=== PATIENT | male | born 1975 | race Caucasian/White ===

== ENCOUNTER 2023-02-19 11:25 | Outpatient (OUT) | payer BC, SELFPAY ==
[2023-02-19 11:45] LABS: Basophils Percent Auto 0.8 % (0.2-2.0); Eosinophils Absolute Auto 0.1 10^3/uL (0.0-0.7); Hematocrit 40.7 % (42.0-54.0); Hemoglobin 13.5 g/dL (14.0-18.0); Immature Granulocytes Abs Auto 0.01 10^3/uL (0.00-0.03); Immature Granulocytes Pct Auto 0.2 % (0.0-0.5); Lymphocytes Absolute Auto 1.5 10^3/uL (1.2-3.8); Lymphocytes Percent Auto 29.9 % (20.5-60.0); Mean Corpuscular HGB Conc 33.2 g/dL (29.9-35.2); Mean Corpuscular Hemoglobin 28.1 pg (25.9-34.0); Mean Corpuscular Volume 84.8 fL (80.0-94.0); Mean Platelet Volume 9.7 fL (9.5-13.5); Monocytes Absolute Auto 0.4 10^3/uL (0.3-0.8); Monocytes Percent Auto 7.1 % (1.7-12.0); Neutrophils Absolute Auto 3.1 10^3/uL (1.4-6.5); Platelet Count 249 10^3/uL (150-450); Red Cell Distribution Width 12.7 % (11.0-15.0); White Blood Count 5.1 10^3/uL (4.0-11.0)
[2023-02-19 13:36] LABS: Estimated Average Glucose 114 mg/dL; Glycohemoglobin A1C 5.6 % (4.5-6.2)
[2023-02-19 14:03] LABS: Prostate Specific Antigen Scrn 1.07 ng/mL (<=4.00)
[2023-02-19 14:12] LABS: Alanine Aminotransferase 41 U/L (16-63); Albumin Globulin Ratio 1.1; Albumin Level 3.8 g/dL (3.4-5.0); Alkaline Phosphatase 77 U/L (46-116); Anion Gap 10.5; Aspartate Amino Transferase 22 U/L (15-37); BUN Creatinine Ratio 11.8; Bilirubin Total 0.5 mg/dL (0.2-1.0); Calcium 8.8 mg/dL (8.5-10.1); Carbon Dioxide 27.4 mmol/L (21.0-32.0); Chloride 108 mmol/L (98-107); Chol HDL Ratio 3.9; Cholesterol 177 mg/dL (<=200); Estimated GFR (African America >60 (>=60); Estimated GFR (Non-African Ame >60 (>=60); Free T3 3.11 pg/mL (2.18-3.98); Globulin 3.5 g/dL; Glucose 85 mg/dL (74-106); HDL Cholesterol 45 mg/dL (40-60); Potassium 3.9 mmol/L (3.5-5.1); Sodium 142 mmol/L (136-145); Thyroid Stimulating Hormone 1.497 uIU/mL (0.358-3.740); Total Protein 7.3 g/dL (6.4-8.2); Triglycerides 65 mg/dL (<=150)
[2023-02-20 10:09] LABS: Insulin 5.2 uIU/mL (2.6-24.9)
== END 2023-02-19 11:26 | disposition home or self-care (01) ==
PROVIDERS: PCP Family Medicine; Visit Provider Nurse Practitioner Family
DX: Z00.00 Encounter for general adult medical examination without abnormal findings (principal); Z12.5 Encounter for screening for malignant neoplasm of prostate
CPT/HCPCS: 36415; 80053; 80061; 83036; 83525; 84436; 84443; 84481; 85025; G0103

== ENCOUNTER 2025-01-28 10:38 | Outpatient (OUT) | payer BC, SELFPAY ==
--- OUTSIDE RECORDS SUMMARY | 2025-01-28 05:45 | XMS_ITS ---
Author Organization [facility] in [place] Address [address] [place] [address] Care Team Providers Care Liner Worker Name Role Phone Nj Benton Primary Care Provider Allergies No Known Allergies REASON FOR VISIT Presents to office alone for yearly wellness Social History Tobacco Use: Social History Observation Description Date Details (start date - stop date) Never Smoker NA - NA Tobacco Use/Smoking Question Answer Notes Patient is a nonsmoker AUDIT-C (Standard) Question Answer Notes Did you have a drink containing alcohol in the p ast year? No Points 0 Interpretation Negative Problems Problem Type SNOMED Code ICD Code Onset Dates Problem Status W/U Status Risk Notes Problem Well adult (832311341) Well adult (Z00.00) Active confirmed Vital Signs Weight 202.6 lbs 01/28/2025 Height 69.5 in 01/28/2025 Blood pressure systolic 136 mm Hg 01/29/20 25 Blood pressure diastolic 80 mm Hg 025 BMI 29.49 kg/m2 01/28/2025 Encounters Encounter Location Date Provider Diagnosis [facility] [address] [place] [address] 01/28/2025 Nj Benton Well adult Z00.00 an d Nevus D22.9 Assessments Encounter Date Diagnosis (ICD Code) Assessment Notes Treatment Notes Treatment Clinical Notes Section Notes 01/28/2025 Well adult (ICD-10 - Z00.00) scaling in 2 spots - sending to derm 01/28/2025 Nevus (ICD-10 - D22.9) Plan Of Treatment Treatment Notes Assessment Notes Well adult scaling in 2 spots - sending to derm Pending Test Test Name Order Date HEMOGLOBIN A1C (GLYCO) 01/28/2025 LIPID PANEL (CHOL/TRIG/HDL/LDL) 01/29/20 25 STOOL OCCULT BLOOD 01/28/2025 PSA, SCREENING 01/28/2025 CMP (COMP MET GAXIOLA) w/eGFR CKD-EPI 2024 CBC WITH DIFF 01/28/2025 Progress Notes * Ricardo RAZO RDOB:[birth year] (49 yo M)Acc No.[id number]:01/28/2025 UNLOCKED PROGRESS NOTE Progress Note Patient: Ricardo OCONNOR Provider: Aneesh Benton ([facility])MD :1975 A ge:49 Y S ex:Male Date:01/28/2025 Address:[address] [place], [place] [id number] Check In:09:38 AM ESTCheck O ut:10:36 AM EST Subjective: * Chief Complaints: * 1 . Presents to office alone for yearly wellness. * HPI: D epression Screening: PHQ-2 (2015 Edition) L ittle interest or pleasure in doing things??Not at all F eeling down, depressed, or hopeless? N ot at all T otal Score 0 * ROS: E ENT: hearing changes d enies. v isual changes d enies.?non-healing mouth sores d enies. s wollen glands or neck lumps d enies. h oarseness d enies. s ore throat d enies. d ifficulty swallowing d enies. n ose bleeds d enies. n hi congestion d enies. e ar ache d enies. e ar discharge?denies. r inging in ears d enies. l ight sensitivity d enies. e ye pain d enies. b lurring d enies. e ye irritation d enies. d ouble vision d enies.?vision loss d enies. G eneral/Constitutional: Sweats: D enies. F atigue d enies. S leep problems d enies. A norexia d enies. M alaise d enies. W eight loss d enies.?Fatigue or Weakness d enies. F ever or Chills d enies. C ardiovascular: Shortness of Breath w/lying flat d enies. L ightheadedness/dizziness d enies. C hest tightness/ heavy pressure d enies. S welling of legs, ankles, or feet d enies. W aking up with shortness of breath d enies. C hest pain denies. P alpitations d enies. W eight gain d enies. R espiratory: Chronic or frequent cough d enies. C oughing up blood?denies. D ifficulty breathing d enies. P roductive cough d enies. S noring?denies. S hortness of breath that awakens from sleep (PND) d enies. C hest pain d enies. S putum production d enies. W heezing d enies. M usculoskeletal: Joint pain d enies. J oint Fluid d enies. B ack pain d enies. K nee pain d enies. N edison pain d enies. J oint Stiffness d enies. M uscle cramps d enies. W eakness of muscles d enies. A rthritis d enies. M uscle aches d enies. P ain in shoulder(s) d enies. S wollen joints d enies. * Medical History: O nyla weight, Low back derangement syndrome. * Surgical History: R od in Femur and then removed . * Family History: F ather: , alcoholism. M other: alive, Breast Cancer. B rother(s): alive. S on(s): alive. D aughter(s): alive. 2 sister(s) - healthy. 2 son(s) , 1 daughter(s) - healthy. . * Social History: T obacco Use: T obacco Use/Smoking P atient is a n onsmoker D rug/Alcohol: A KIMMIE-C (Standard) D id you have a drink containing alcohol in the past year? N o P oints 0 I nterpretation N egative * Medications: D iscontinued Baclofen 20 MG Tablet 1 tablet Administer without regards to meals as needed Orally Twice a day , Discontinued Oxaprozin 600 MG Tablet as directed Orally , Discontinued Triamcinolone Acetonide 0.1 % Ointment 1 application Externally Twice a day , Medication List reviewed and reconciled with the patient * Allergies: N .K.D.A. Objective: * Vitals: W t:202.6lbs, Ht: 69.5 in, BP:136/80mm Hg, BMI:29.49Index, Ht-cm: 176.53 cm, Wt- k.9 kg. * Examination: P hysical Exam: GENERAL: w ell developed, well nourished, in no acute distress. HEAD: n ormocephalic/atraumatic. EYES: p upils equal, round and reactive to light, conjunctivae and sclerae normal. EARS: n o deformity or lesion of external ear, canals and TM appear normal bilaterally, TM's intact, not inflamed with normal light reflex, hearing grossly normal to conversational speech. NOSE: n o deformity, discharge, inflammation, or lesions.? MOUTH: m ucous membranes moist, normal oropharynx and posterior pharynx without lesions or exudates, tongue normal, dentition normal. NECK: n edison supple, no masses or palpable cervical nodes, trachea midline, thyroid without nodules, masses, tenderness, or enlargement. CHEST: n o chest wall deformity, no chest wall tenderness.? LUNGS: n ormal respiratory effort and clear to auscultation, no wheezes, rales, or rhonchi, good air exchange. CARDIO: r egular rate and rhythm, normal S1 and S2, nor murmur, rub, or gallop. PULSES: n ormal capillary refill. ABDOMEN: s oft, non-distended, non-tender, no masses. MUSCULOSKELETAL: n o deformity or scoliosis noted, normal range of motion, joints normal, no erythema, edema, effusion, or ecchymosis. EXTREMITY: n o clubbing, cyanosis, edema, or deformity with normal ROM in both upper and lower bilateral extremities. NEUROLOGIC: g rossly normal. SKIN: n o rashes, ulcerations, or suspicious lesions. LYMPH NODES: n o cervical adenopathy, nodes normal. MENTAL STATUS: a lert and oriented x3, normal mood and affect. Assessment: * Assessment: 1. W ell adult - Z00.00 (Primary) 2 . N evus - D22.9 Plan: * Treatment: * Preventive Medicine: Screenings/Counseling: B MO ACTION PLAN Above Normal BMI Follow-up D ietary management education, guidance, and counseling See treatment section of progress note for complete details of management plan. * * Electronic signature of Nj Benton MD, [id number] on 01/28/2025 at 10:42 AM EDT Sign off status: Pending Visit Status: C HK (Check Out) * Provider: Aneesh Benton ([facility])MD Date: 0 01/28/2025 Generated for Printi ng/Faxing/eTransmitting on: 0 01/28/2025 10:42 AM EDT History and Physical Notes * HPI (History of Present Illness) Category Sub-Category Detail Notes Category Not es Depression Screening PHQ-2 (2015 Edition) Little interest or pleasure in doing things?: Not at all Feeling down, depressed, or hopeless?: N ot at all Total Score: 0 Examination Category Sub-Category Detail Notes Category Not es Physical Exam GENERAL: well developed, well nourished, in no acute distress HEAD: normocephalic/atraum atic EYES: pupils equal, round and reactive to light, conjunctivae and sclerae normal EARS: no deformity or lesi on of external ear, canals and TM appear normal bilaterally, TM's intact, not inflamed with normal light reflex, hearing grossly normal to conversational speech NOSE: no deformity, discha rge, inflammation, or lesions MOUTH: mucous membranes [address], normal oropharynx and posterior pharynx without lesions or exudates, tongue normal, dentition normal NECK: neck supple, no mass es or palpable cervical nodes, trachea midline, thyroid without nodules, masses, tenderness, or enlargement CHEST: no chest wall deform ity, no chest wall tenderness LUNGS: normal respiratory e ffort and clear to auscultation, no wheezes, rales, or rhonchi, good air exchange CARDIO: regular rate and rhy thm, normal S1 and S2, nor murmur, rub, or gallop PULSES: normal capillary ref ill ABDOMEN: soft, non-distended, non-tender, no masses RECTAL: MUSCULOSKELETAL: no deformity or scol iosis noted, normal range of motion, joints normal, no erythema, edema, effusion, or ecchymosis EXTREMITY: no clubbing, cyanosi s, edema, or deformity with normal ROM in both upper and lower bilateral extremities NEUROLOGIC: grossly normal SKIN: no rashes, ulceratio ns, or suspicious lesions LYMPH NODES: no cervical adenopat hy, nodes normal MENTAL STATUS: alert and oriented x 3, normal mood and affect
--- OUTSIDE RECORDS SUMMARY | 2025-01-28 06:27 | XMS_ITS ---
Author Organization [facility] in [place] Address [address] [place] [address] Care Team Providers Care School Boat Driver Name Role Phone Chetan Nj Primary Care Provider [phone] Reason For Referral Diagnosis 1 Nevus (D22.9) Referral Organization [facility] Referring Provider First Name Nj Referring Provider Last Name Chetan Referring Provider [facility] karina Referred Provider Sumanth Arevalo Referred Provider Specialty Dermatology Referral Priority Routine REASON FOR VISIT derm Encounters Encounter Location Date Provider Diagnosis [facility] [address] [place] [address] 01/28/2025 Nj Benton Nevus D22.9 Assessments Encounter Date Diagnosis (ICD Code) Assessment Notes Treatment Notes Treatment Clinical Notes Section Notes 01/28/2025 Nevus (ICD-10 - D22.9) Plan Of Treatment Referrals Referral Date Details 01/28/2025 01/28/2025, Sumanth mejia Progress Notes * Ricardo RAZO RDOB:[birth year] (49 yo M)Acc No.[id number]:01/28/2025 Patient: Misha Ricardo GABRIEL :1975 A ge:49 Y S ex:Male Address:[address] [place] [address] [address], [place] [address] Subjective: * Chief Complaints: * D erm * Medical History: * Surgical History: * Hospitalization/Major Diagno stic Procedure: * Medications: Objective: * Vitals: * Physical Examination: Assessment: * Assessment: 1. N evus - D22.9 (Primary) Plan: * Treatment: * Procedure Codes: * true * Date: Generated for Sapphire ronquillo/Ilya/Lowell on: 0 01/28/2025 10:42 AM EDT Consultation Request Notes Referral Date Referring Provider Referred Provider Not es 01/28/2025 Nj Benton Thomas
--- OUTSIDE RECORDS SUMMARY | 2025-01-28 10:42 | XMS_ITS | Patient Health Record ---
Author Organization [facility] in [place] Address [address] [place] [address] Care Team Providers Care Dietitian Consultant Name Role Phone Chetan Nj Primary Care Provider [phone] Allergies No Known Allergies Reason For Referral Diagnosis 1 Nevus (D22.9) Referral Organization [facility] Referring Provider First Name Nj Referring Provider Last Name Chetan Referring Provider Speciality Family Med karina Referred Provider Sumanth Arevalo Referred Provider Specialty Dermatology Referral Priority Routine Social History Tobacco Use: Social History Observation Description Date Details (start date - stop date) Never Smoker NA - NA Tobacco Use/Smoking Question Answer Notes Patient is a nonsmoker Alcohol Screen (Audit-C) Question Answer Notes Did you have a drink contain ing alcohol in the past year? Yes How often did you have a dri nk containing alcohol in the past year? Less than monthly (1 point) Points 1 Interpretation Negative AUDIT-C (Standard) Question Answer Notes Did you have a drink containing alcohol in the p ast year? No Points 0 Interpretation Negative Problems Problem Type SNOMED Code ICD Code Onset Dates Problem Status W/U Status Risk Notes Problem Degeneration of cervical intervertebral disc (68980879) Other cervical disc degeneration, unspecified cervical region (M50.30) Active confirmed Problem Well adult (149087487) Well adult (Z00.00) Active confirmed Problem Overweight (048918189) Over weight (E66.3) Active confirmed Problem Disorder of sacrum (83346907) Low back derangement syndrome (M53.86) Active confirmed Vital Signs Blood pressure diastolic 80 mm Hg 01/28/2025 Height 69.5 in 01/28/2025 Blood pressure systolic 136 mm Hg 01/28/2025 Weight 202.6 lbs 01/28/2025 BMI 29.49 kg/m2 01/28/2025 Encounters Encounter Location Date Provider Diagnosis [facility] [address] [place] [address] 01/28/2025 Nj Benton Nevus D22.9 [facility] [address] [place] [address] 01/28/2025 Nj Hoy Well adult Z00.00 an d Nevus D22.9 Assessments Encounter Date Diagnosis (ICD Code) Assessment Notes Treatment Notes Treatment Clinical Notes Section Notes 01/28/2025 Well adult (ICD-10 - Z00.00) scaling in 2 spots - sending to derm 01/28/2025 Nevus (ICD-10 - D22.9) 01/28/2025 Nevus (ICD-10 - D22.9) Plan Of Treatment Pending Test Test Name Order Date CMP (COMPLETE METABOLIC PANEL) 3 HEMOGLOBIN A1C (GLYCO) 02/18/2023 HEMOGLOBIN A1C (GLYCO) 01/28/2025 INSULIN, TOTAL 02/18/2023 LIPID PANEL (CHOL/TRIG/HDL/LDL) 01/29/20 25 LIPID PANEL (CHOL/TRIG/HDL/LDL) 02/19/20 23 CBC WITH DIFF 02/18/2023 PSA, PROSTATE-SPECIFIC ANTIGEN 3 STOOL OCCULT BLOOD 01/28/2025 THYROID PANEL (T4/TSH/FREE T3) 3 PSA, SCREENING 01/28/2025 CMP (COMP MET GAXIOLA) w/eGFR CKD-EPI 2024 CBC WITH DIFF 01/28/2025 Insurance Providers Payer Name Payer Address Payer Phone Subscriber Number Group Number Insured Name Patient Relationship to Insured Coverage Start Date Coverage End Date [employer] ACCESS PPO PLUS LOCAL PLAN [address] [place] [phone] [id number] Ricardo Mcnamara Self - patient is the insured Medical (General) History Medical History History ICD Code Over weight E66.3 Low back derangement syndrome M53.86 Surgical History Surgery Date(Month/Year) Phani in Femur and then removed
--- OUTSIDE RECORDS SUMMARY | 2025-01-28 10:42 | XMS_ITS | Clinical Summary ---
Author Organization [employer] [facility] tem Address [id number] [address] [place] [address] Care Team Providers Care Acetaldehyde Converter Operator Name Role Phone Stalin Benton MD Primary Care Provider [phone] Allergies No known active allergies Medications No known medications Immunizations Immunization Administration Dates Next Due Tdap 09/21/2019 Social History Tobacco Use Types Packs/Day Years Used Date Smoking Tobacco: Never Smokeless Tobacco: Never Childcare Answer Date Recorded Childcare Unknown 11/04/2018 Employment Answer Date Recorded Employment Unknown 11/04/2018 Purpose - Life Answer Date Recorded Purpose and direction in life Unknown Sex and Gender Information Value Date Recorded Sex Assigned at Not on file Legal Sex Male 11:57 AM EDT Gender Identity Not on file Sexual Orientation Not on file Last Filed Vital Signs Vital Sign Reading Time Taken Comments Blood Pressure 129/84 09/21/2019 2:56 PM EDT Pulse 71 09/21/2019 2:56 PM EDT Temperature 36.8 C (98.3 F) 09/21/2019 2:57 PM EDT Respiratory Rate 18 09/21/2019 2:56 PM EDT Oxygen Saturation 98% 09/21/2019 2:56 PM EDT Inhaled Oxygen Concentration - - Weight 89.8 kg (198 lb) 09/21/2019 2:56 PM EDT Height 175.3 cm (5' 9 ) 09/21/2019 2:56 PM EDT Body Mass Index 29.24 09/21/2019 2:56 PM EDT Plan of Treatment Not on file Medical Devices Not on file Insurance ANTHEM Care Teams Acetaldehyde Converter Operator Relationship Specialty Start Date End Date Stalin Benton MD PCP - General Family Medicine 09/21/19
[2025-01-28 11:06] LABS: Hematocrit 44.1 % (42.0-54.0); Hemoglobin 14.6 g/dL (14.0-18.0); Immature Granulocytes Abs Auto 0.01 10^3/uL (0.00-0.03); Immature Granulocytes Pct Auto 0.2 % (0.0-0.5); Lymphocytes Absolute Auto 1.6 10^3/uL (1.2-3.8); Mean Corpuscular HGB Conc 33.1 g/dL (29.9-35.2); Mean Corpuscular Hemoglobin 28.2 pg (25.9-34.0); Mean Corpuscular Volume 85.1 fL (80.0-94.0); Platelet Count 240 10^3/uL (150-450); Red Blood Count 5.18 10^6/uL (4.70-6.10); White Blood Count 5.3 10^3/uL (4.0-11.0)
[2025-01-28 11:30] LABS: Alanine Aminotransferase 65 U/L (16-63); Albumin Globulin Ratio 1.1; Albumin Level 3.9 g/dL (3.4-5.0); Alkaline Phosphatase 107 U/L (46-116); Anion Gap 13.4; Aspartate Amino Transferase 22 U/L (15-37); Blood Urea Nitrogen 13.0 mg/dL (7.0-18.0); Calcium 8.9 mg/dL (8.5-10.1); Carbon Dioxide 27.0 mmol/L (21.0-32.0); Chloride 107 mmol/L (98-107); Cholesterol 212 mg/dL (<=200); Estimated GFR (African America >60 (>=60 mL/min/1.73m^2); Estimated GFR (Non-African Ame >60 (>=60 mL/min/1.73m^2); Globulin 3.6 g/dL; Glucose 94 mg/dL (74-106); HDL Cholesterol 41 mg/dL (40-60); Potassium 4.4 mmol/L (3.5-5.1); Sodium 143 mmol/L (136-145); Total Protein 7.5 g/dL (6.4-8.2); Triglycerides 137 mg/dL (<=150); VLDL CHOLESTEROL 27.4 mg/dL
== END 2025-01-28 10:39 | disposition home or self-care (01) ==
PROVIDERS: PCP Family Medicine; Visit Provider Family Medicine
DX: Z00.00 Encounter for general adult medical examination without abnormal findings (principal); Z12.5 Encounter for screening for malignant neoplasm of prostate; E78.5 Hyperlipidemia, unspecified; R73.09 Other abnormal glucose; Z12.12 Encounter for screening for malignant neoplasm of rectum; R53.83 Other fatigue
CPT/HCPCS: 36415; 80053; 80061; 83036; 85025; G0103